=== PATIENT | female | born 1995 | race Caucasian/White ===

== ENCOUNTER 2021-12-05 14:49 | Emergency (ER) | payer OTHER ==
[~2021-12-05] VITALS: Ht 167.6 cm; Wt 116.6 kg
[2021-12-05] MEDS ORDERED: AUGMENTIN 875-875 MG PO (15:13)
== END 2021-12-05 17:47 | disposition home or self-care (01) ==
LOC: ED 14:49
DX: S91.331A Puncture wound without foreign body, right foot, initial encounter (principal); W22.8XXA Striking against or struck by other objects, initial encounter; Y93.89 Activity, other specified; Y92.89 Other specified places as the place of occurrence of the external cause; Y99.8 Other external cause status

== ENCOUNTER 2021-12-14 16:23 | Emergency (ER) | payer OTHER ==
[~2021-12-14 16:23] MED LIST: AUGMENTIN 875-875 MG PO
[2021-12-14] MEDS ORDERED: PREDNISONE20 M1 PO (20:39)
== END 2021-12-14 20:40 | disposition home or self-care (01) ==
LOC: ED 16:23
DX: R21 Rash and other nonspecific skin eruption (principal); T36.0X5A Adverse effect of penicillins, initial encounter; Y92.89 Other specified places as the place of occurrence of the external cause

== ENCOUNTER 2021-12-16 15:01 | Emergency (ER) | payer OTHER ==
[~2021-12-16] VITALS: Ht 167.6 cm; Wt 120.8 kg
[~2021-12-16 15:01] MED LIST changes: +PREDNISONE20 M1 PO
[2021-12-16] MEDS ORDERED: HYDROXYZINE HCL25 MG PO (18:20)
[2021-12-16] MEDS ORDERED: PEPCID20 MG PO (18:20)
== END 2021-12-16 18:41 | disposition home or self-care (01) ==
LOC: ED 15:01
DX: J02.9 Acute pharyngitis, unspecified (principal); T36.0X5A Adverse effect of penicillins, initial encounter; Y92.89 Other specified places as the place of occurrence of the external cause; Z88.1 Allergy status to other antibiotic agents

== ENCOUNTER 2023-05-10 11:41 | Emergency (ER) | payer OTHER ==
[~2023-05-10] VITALS: Ht 167.6 cm; Wt 117.9 kg
[~2023-05-10 11:41] MED LIST changes: +HYDROXYZINE HCL25 MG PO; +PEPCID20 MG PO
[2023-05-10] MEDS ORDERED: AVPAK AZITHROM250 M1 PO (13:16)
== END 2023-05-10 13:21 | disposition home or self-care (01) ==
LOC: ED 11:41
DX: J32.9 Chronic sinusitis, unspecified (principal); Z88.1 Allergy status to other antibiotic agents; Z88.8 Allergy status to other drugs, medicaments and biological substances; Z20.822 Contact with and (suspected) exposure to COVID-19

== ENCOUNTER 2025-01-25 20:54 | Emergency (ER) | payer OTHER ==
[~2025-01-25] VITALS: Ht 167.6 cm; Wt 127.0 kg
[~2025-01-25 20:54] MED LIST changes: +AVPAK AZITHROM250 M1 PO
[2025-01-25] MEDS ORDERED: LISSAMINE GREEN 1.5 MG STRIP OP ONE (21:35)
[2025-01-25] MEDS ORDERED: Dexamethasone/Tobramycin OPHTHALMIC 2.5 ML BOTTLE OPH ONE (22:20)
== END 2025-01-25 22:36 | disposition home or self-care (01) ==
LOC: ED 20:54
DX: S05.02XA Injury of conjunctiva and corneal abrasion without foreign body, left eye, initial encounter (principal); Z88.1 Allergy status to other antibiotic agents; X58.XXXA Exposure to other specified factors, initial encounter; Y93.89 Activity, other specified; Y92.89 Other specified places as the place of occurrence of the external cause; Y99.8 Other external cause status

== ENCOUNTER 2025-02-02 15:17 | Emergency (ER) | payer OTHER ==
[~2025-02-02] VITALS: Wt 127.0 kg
[2025-02-02] MEDS ORDERED: Ciprofloxacin Hydrochloride 0.3% OPHTHLAMIC BOTTLE OPH ONE (15:40)
[2025-02-02] MEDS ORDERED: CIPROFLOXACIN H10 ML OPH (15:43)
== END 2025-02-02 15:54 | disposition home or self-care (01) ==
LOC: ED 15:17
DX: S05.01XA Injury of conjunctiva and corneal abrasion without foreign body, right eye, initial encounter (principal); W44.8XXA Other foreign body entering into or through a natural orifice, initial encounter; Y93.89 Activity, other specified; Y92.89 Other specified places as the place of occurrence of the external cause; Y99.8 Other external cause status

== ENCOUNTER 2025-04-15 20:54 | Emergency (ER) | payer OTHER ==
[~2025-04-15] VITALS: Ht 167.6 cm; Wt 127.0 kg
[~2025-04-15 20:54] MED LIST changes: +CIPROFLOXACIN H10 ML OPH
[2025-04-15] MEDS ORDERED: diphenhydrAMINE hydrochloride 50 MG/ML VIAL IV ONE (22:25)
[2025-04-15] MEDS ORDERED: FAMOTIDINE 20 MG in SYRINGE INFUSION 8 ML IV ONE (22:30)
[2025-04-15] MEDS ORDERED: FAMOTIDINE 20 MG/2 ML VIAL ONE (23:56)
[2025-04-16] MEDS ORDERED: PREDNISONE10 M1 PO (02:02)
[2025-04-16] MEDS ORDERED: PEPCID20 MG PO (02:02)
[2025-04-16] MEDS ORDERED: ALLERGY MEDICAT25 MG PO (02:02)
== END 2025-04-16 02:21 | disposition home or self-care (01) ==
LOC: ED 20:54
DX: L50.9 Urticaria, unspecified (principal); Z88.0 Allergy status to penicillin; Z88.1 Allergy status to other antibiotic agents